=== PATIENT | female | born 1980 | race Two or more races ===

== ENCOUNTER 2024-09-17 22:29 | Emergency (ER) | payer OTHER ==
[~2024-09-17] VITALS: Ht 162.6 cm; Wt 80.7 kg
[2024-09-18] MEDS ORDERED: METOCLOPRAMIDE HCL 5 MG/ML VIAL IM STA (01:30)
[2024-09-18] MEDS ORDERED: METOCLOPRAMIDE HCL 5 MG/ML VIAL ONE (01:32)
[2024-09-18 02:04] LABS: BASO % 0.6 % (0.1-1.2); EOS # 0.08 (0.04-0.54); EOS % 1.2 % (0.7-7.0); HEMATOCRIT 35.2 % (34.1-44.9); HEMOGLOBIN 11.3 g/dL (11.2-15.7); LYMPH # 3.32 (1.18-3.74); LYMPH % 51.4 % (19.3-53.1); MEAN CORPUSCULAR HEMOGLOBIN 21.5 pg (25.6-32.2); MONO # 0.46 (0.24-0.82); MONO % 7.1 % (4.7-12.5); NEUT # 2.55 (1.56-6.13); NEUT % 39.5 % (34.0-71.1); PLATELET COUNT 213 K/uL (163-369); RED BLOOD COUNT 5.26 M/uL (3.93-5.22); RED CELL DISTRIBUTION WIDTH 15.3 % (11.6-14.4)
[2024-09-18 02:35] LABS: ANION GAP 10 (10.0-20.0); BLOOD UREA NITROGEN 15 mg/dL (7-18); BUN CREA RATIO 14 (7.0-25.0); CARBON DIOXIDE 24 mEq/L (21-32); CHLORIDE 113 mmol/L (98-107); GFR 53.96; GLUCOSE FASTING 95 mg/dL (65-100); OSMOLALITY SERUM 286 MOSM/KG (275-295); POTASSIUM 3.95 mEq/L (3.5-5.1); SODIUM 143 mmol/L (136-145)
[2024-09-18 03:59] LABS: HCG QUANTITATIVE < 1 mUI/mL (1-3)
== END 2024-09-18 04:58 | disposition home or self-care (01) ==
LOC: ER 22:29
DX: R11.0 Nausea (principal); Z88.6 Allergy status to analgesic agent
CPT/HCPCS: 36415; 96372; 99282; J2765

== ENCOUNTER 2024-12-03 23:24 | Emergency (ER) | payer OTHER ==
[~2024-12-03] VITALS: Ht 162.6 cm; Wt 78.0 kg
[2024-12-03] MEDS ORDERED: RELAFEN DS1000 MG PO (23:38)
[2024-12-03] MEDS ORDERED: TRAMADOL HCL E100 M1 PO (23:38)
[2024-12-04] MEDS ORDERED: DEXAMETHASONE SODIUM PHOSPHATE 4 MG/ML VIAL IM STA (01:56)
[2024-12-04] MEDS ORDERED: OxyCODONE HCL 5 MG TABLET (ROXICODONE) PO STA (01:57)
[2024-12-04] MEDS ORDERED: ORPHENADRINE CITRATE 30 MG/ML AMPUL IM STA (01:57)
== END 2024-12-04 02:26 | disposition home or self-care (01) ==
LOC: ER 23:24
DX: G56.01 Carpal tunnel syndrome, right upper limb (principal); Z88.6 Allergy status to analgesic agent